=== PATIENT | male | born 1945 | race Caucasian/White ===

== ENCOUNTER 2017-02-13 11:56 | Day surgery (SDC) | payer OTHER, BC ==
[~2017-02-13] VITALS: Ht 193 cm; Wt 129.7 kg
[~2017-02-13 11:56] MED LIST: ALLOPURINOL100 MG PO; ALLOPURINOL300 MG PO; GABAPENTIN100 MG PO; HYDROCHLOROTH12.5 M3 PO; INDOMETHACIN25 MG PO; LIPITOR20 MG PO; LISINOPRIL10 MG PO; METFORMIN HCL500 MG PO; PAXIL20 MG PO; SOTALOL80 MG PO; XARELTO20 MG PO; ZIAC 10/6.251 TABLET PO
[2017-02-13 12:32] LABS: POINT-OF-CARE METER ID UU13113696; POINT-OF-CARE USER ID HMLCJM07
== END 2017-02-13 15:00 | disposition home or self-care (01) ==
LOC: CATH 11:56
PROVIDERS: Internal Medicine Cardiovascular Disease
PROC: 5A2204Z Restoration of Cardiac Rhythm, Single (ICD-10-PCS; principal; 2017-02-13)
DX: I48.0 Paroxysmal atrial fibrillation (principal); Z79.01 Long term (current) use of anticoagulants; I10 Essential (primary) hypertension; E78.5 Hyperlipidemia, unspecified; Z79.84 Long term (current) use of oral hypoglycemic drugs
CPT/HCPCS: 82948; J1940; J2250

== ENCOUNTER 2018-05-04 09:28 | Day surgery (SDC) | payer OTHER, BC ==
[~2018-05-04] VITALS: Ht 193 cm; Wt 134.0 kg
[~2018-05-04 09:28] MED LIST changes: +PAROXETINE HCL20 MG PO; +PRAVASTATIN SOD20 MG PO
[2018-05-04 10:27] LABS: HEMATOCRIT 45.1 % (38.0-50.0); HEMOGLOBIN 15.1 G/DL (12.5-16.6); MCHC 33.5 G/DL (30.0-36.0); MCV 86.6 FL (86-99); PLATELET COUNT 217 K/uL (156-360); RBC DIS.WIDTH-CV 13.5 % (11.8-14.6); RED BLOOD COUNT 5.21 M/uL (4.00-5.50); WHITE BLOOD COUNT 7.1 K/uL (4.1-10.2)
[2018-05-04 10:33] LABS: INTER. NORMALIZED RATIO 1.7
[2018-05-04 10:36] LABS: PTT 40.4 SEC (25-37)
[2018-05-04 10:52] LABS: CHLORIDE 105 MEQ/L (99-109); CREATININE 1.2 MG/DL (0.6-1.3); GFR ESTIMATE (CALCULATED) > 59 mL/min/ (58.99-99999); GLUCOSE 126 mg/dL (70-99); POTASSIUM 4.3 MEQ/L (3.7-5.4); SODIUM 142 MEQ/L (136-147); UREA NITROGEN (BUN) 17 mg/dL (9-23)
== END 2018-05-04 12:40 | disposition home or self-care (01) ==
LOC: CATH 09:28
PROVIDERS: Internal Medicine Cardiovascular Disease
PROC: 5A2204Z Restoration of Cardiac Rhythm, Single (ICD-10-PCS; principal; 2018-05-04)
DX: I48.0 Paroxysmal atrial fibrillation (principal); Z79.01 Long term (current) use of anticoagulants; I10 Essential (primary) hypertension; E11.9 Type 2 diabetes mellitus without complications; E78.2 Mixed hyperlipidemia; E66.3 Overweight; Z68.36 Body mass index [BMI] 36.0-36.9, adult; Z79.84 Long term (current) use of oral hypoglycemic drugs
CPT/HCPCS: 80048; 82948; 85027; 85610; 85730; 93005